=== PATIENT | female | born 1955 | race Caucasian/White ===

== ENCOUNTER 2022-01-12 11:18 | Outpatient (CLI) | payer MEDICARE, BC, SELFPAY ==
[2022-01-12 13:35] LABS: Anion Gap 5 mmol/L (8-16); Blood Urea Nitrogen 17 mg/dL (7-17); Calcium 8.9 mg/dL (8.4-10.2); Carbon Dioxide 27 mmol/L (22-30); Chloride 104 mmol/L (98-107); Cholesterol 174 mg/dL (0-200); Estimated Glomerular Filt Rate > 60; Glucose 138 mg/dL (65-110); HDL Direct 51 mg/dL; Potassium 3.9 mmol/L (3.4-5.0); Sodium 136 mmol/L (137-145); Triglycerides 68 mg/dL (<150)
[2022-01-12 13:44] LABS: Free T4 Free Thyroxine 1.35 ng/mL (0.78-2.19)
[2022-01-12 13:45] LABS: LDL Cholesterol Direct 77 mg/dL
[2022-01-12 14:02] LABS: Creatinine Urine 159.6 mg/dL
[2022-01-12 14:07] LABS: MALB Creatinine Ratio 5.7 mg/g (0-30); Microalbumin Urine Random 9.1 mg/L (0-16.7)
[2022-01-14 05:18] LABS: C-Peptide 0.43 ng/mL (0.80-3.85)
[2022-01-14 20:25] LABS: Glutamic acid decarboxylase AA <5 IU/mL (<5)
== END 2022-01-12 11:19 | disposition home or self-care (01) ==
PROVIDERS: Visit Provider Internal Medicine Endocrinology, Diabetes & Metabolism
DX: E03.9 Hypothyroidism, unspecified (principal); E11.65 Type 2 diabetes mellitus with hyperglycemia; E78.2 Mixed hyperlipidemia; Z71.3 Dietary counseling and surveillance; Z79.4 Long term (current) use of insulin
CPT/HCPCS: 36415; 80048; 80061; 82043; 84439; 84443; 84681; 86341